=== PATIENT | male | born 1995 | race Caucasian/White ===

== ENCOUNTER 2017-03-27 20:19 | Inpatient (IN) | payer OTHER ==
[~2017-03-27] VITALS: Ht 167.6 cm; Wt 70.8 kg
[2017-03-27 20:33] VITALS: BP 135/74
[2017-03-27 23:38] LABS: BASOPHILS # (AUTO) 0.5 K/uL (0.00-0.22); BASOPHILS % (AUTO) 4.4 % (0.0-2.0); EOSINOPHILS # (AUTO) 0.3 K/uL (0-0.4); EOSINOPHILS % (AUTO) 2.7 % (0.0-4.0); HEMATOCRIT 43.4 % (36-52); HEMOGLOBIN 14.3 g/dL (12.0-18.0); LYMPHOCYTES # (AUTO) 3.9 K/uL (2.0-11.5); LYMPHOCYTES % (AUTO) 36.9 % (20.5-51.1); MEAN CORPUSCULAR HEMOGLOBIN 30 pg (27-31); MEAN CORPUSCULAR HGB CONC 33 g/dL (33-37); MEAN CORPUSCULAR VOLUME 91 fL (80-94); MONOCYTES # (AUTO) 0.8 K/uL (0.8-1.0); MONOCYTES % (AUTO) 7.9 % (1.7-9.3); NEUTROPHILS # (AUTO) 5.1 K/uL (1.8-7.7); NEUTROPHILS % (AUTO) 48.1 % (42.2-75.2); PLATELET COUNT (AUTO) 262 K/uL (140-450); RED BLOOD CELL COUNT(AUTO) 4.77 MIL/uL (4.20-6.10); RED CELL DISTRIBUTION WIDTH 11.9 % (11.6-13.7); WHITE BLOOD COUNT (AUTO) 10.6 K/uL (4.8-10.8)
[2017-03-27 23:42] LABS: APPEARANCE,URINE CLEAR (CLEAR); BILIRUBIN,URINE NEGATIVE (NEGATIVE); BLOOD, URINE NEGATIVE (NEGATIVE); COLOR,URINE YELLOW (YELLOW); LEUKOCYTE ESTERASE ,URINE NEGATIVE (NEGATIVE); NITRITE, URINE NEGATIVE (NEGATIVE); UGLUCOSE NEGATIVE (NEGATIVE)
--- NOTE | 2017-03-27 23:44 | NUR ---
C/O RT. ABDOMINAL PAIN X 1 WK. PAIN RADIATES TO GROIN AREA. NO MEDICAL HX. DENIES ANY FEVER, NAUSE AND VOMITTING, DENIES TAKING ANY MEDICATION, SKIN WARM TO TOUCH RESP. EVEN AND UNLABORED, PT AAO 11/10.
[2017-03-27 23:46] LABS: ANION GAP 13.5 (8-16); CARBON DIOXIDE 25.5 mmol/L (21-32); CREATININE 1.3 mg/dL (0.7-1.3); TOTAL BILIRUBIN 0.4 mg/dL (0.0-1.0)
[2017-03-28] MEDS ORDERED: ONDANSETRON 4 MG/2 ML VIAL IVP PRN (02:55)
[2017-03-28] MEDS ORDERED: ACETAMINOPHEN 325 MG TAB PO PRN (02:55)
[2017-03-28] MEDS ORDERED: amLODIPine 5 MG TAB PO SCH (02:55)
--- NOTE | 2017-03-28 03:35 | NUR ---
Patient will be admitted to care of DR. JONES. Admited to M/S. Will go to room 112A. Belongings list completed. Report to ROXIE PARRA.
--- NOTE | 2017-03-28 03:59 | NUR ---
RECEIVED FROM ER PER WHEELCHAIR AWAKE AND ALERT. NO SOB. ORIENTED X 4. ROM X 4. CLEAR SPEECH. DX. OF KIDNEY STONES . PT. ORIENTED TO CALL LIGHT USE FOR ANY HELP HE MAY NEED OR IF IN PAIN. SKIN INTACT. IVF SITE TO RAC#20. SKIN INTACT.
[2017-03-28] MEDS: NACL 0.9% 1,000 ML IV SCH ×3 (04:07→22:53)
[2017-03-28 04:12] VITALS: BP 129/65
--- NOTE | 2017-03-28 04:46 | NUR ---
PT. URINATED IN RESTROOM. NO COMPLAINTS DONE. DENIES PAIN AT THIS TIME.
[2017-03-28 07:10] LABS: BASOPHILS # (AUTO) 0.2 K/uL (0.00-0.22); EOSINOPHILS # (AUTO) 0.2 K/uL (0-0.4); EOSINOPHILS % (AUTO) 2.2 % (0.0-4.0); HEMATOCRIT 39.1 % (36-52); HEMOGLOBIN 13.5 g/dL (12.0-18.0); LYMPHOCYTES # (AUTO) 2.7 K/uL (2.0-11.5); LYMPHOCYTES % (AUTO) 28.1 % (20.5-51.1); MEAN CORPUSCULAR HEMOGLOBIN 31 pg (27-31); MEAN CORPUSCULAR HGB CONC 35 g/dL (33-37); MEAN CORPUSCULAR VOLUME 90 fL (80-94); MONOCYTES # (AUTO) 0.7 K/uL (0.8-1.0); MONOCYTES % (AUTO) 7.5 % (1.7-9.3); NEUTROPHILS # (AUTO) 5.8 K/uL (1.8-7.7); NEUTROPHILS % (AUTO) 60.2 % (42.2-75.2); PLATELET COUNT (AUTO) 233 K/uL (140-450); RED BLOOD CELL COUNT(AUTO) 4.35 MIL/uL (4.20-6.10); RED CELL DISTRIBUTION WIDTH 11.5 % (11.6-13.7); WHITE BLOOD COUNT (AUTO) 9.6 K/uL (4.8-10.8)
--- NOTE | 2017-03-28 07:20 | NUR ---
ENDORSED TO THE NEXT RN FOR CONTINUITY OF CARE. URINE STRAINED AND NOTED WITH SPECKS OF CRYSTALS IN IT. A/O X 4. ROM X 4. CLEAR SPEECH.
--- NOTE | 2017-03-28 07:21 | NUR ---
RECEIVED REPORT FROM CUT OFF SAWYER RN. PATIENT IN STABLE CONDITION. AOX4, RESPIRATORY EFFORT EVEN AND UNLABORED. NO SIGNS AND SYMPTOMS OF DISTRESS NOTED AT THIS TIME. PATIENT HAS IV SITE TO RIGHT AC 20G, INFUSING NORMAL SALINE AT 100 ML/HR. SITE IS CLEAN, DRY, PATENT AND INTACT. DISCUSSED PLAN OF CARE WITH PATIENT AND HE VERBALIZED UNDERSTANDING. BED IN LOWEST POSITION, SIDE RAILS UP X2, CALL LIGHT PLACED WITHIN REACH. WILL CONTINUE TO MONITOR.
[2017-03-28 08:00] VITALS: BP 127/71
[2017-03-28] MEDS: ENOXAPARIN 30 MG/0.3 ML SYR SUBQ SCH (08:28)
[2017-03-28] MEDS: TAMSULOSIN 0.4 MG CAP PO SCH (08:28)
[2017-03-28] MEDS: MORPHINE SULFATE 2 MG/ML SYR IVP PRN ×2 (08:28→12:49)
[2017-03-28 08:46] LABS: ALBUMIN 3.6 g/dL (3.4-5.0); ANION GAP 14.1 (8-16); CARBON DIOXIDE 22.9 mmol/L (21-32); CREATININE 1.2 mg/dL (0.7-1.3); TOTAL BILIRUBIN 0.4 mg/dL (0.0-1.0)
--- NOTE | 2017-03-28 09:07 | NUR ---
PATIENT HAS BEEN SCREENED AND CATEGORIZED LOW NUTRITION RISK. PATIENT WILL BE SEEN WITHIN 7 DAYS OF ADMISSION. 04/03/[address]
[2017-03-28] MEDS: MORPHINE SULFATE 4 MG/ML SYR IVP PRN ×2 (10:10→15:12)
--- NOTE | 2017-03-28 14:15 | NUR ---
CM NOTE INITIAL REVIEW FAXED TO [facility] [phone] ANGELA # [phone]
[2017-03-28 16:00] VITALS: BP 118/60
[2017-03-28] MEDS ORDERED: MORPHINE SULFATE 10 MG/ML SYR IVP PRN (17:25)
--- NOTE | 2017-03-28 19:33 | NUR ---
RECEIVED BEDSIDE REPORT FROM DAY SHIFT NURSE KRISTOPHER RN, PT STABLE, NO DISTRESS NOTED, IV TO R AC RUNNING NS @ 100ML/HR, INFUSING WELL, REPORTING HAVING NO PAIN AT THIS MOMENT, INITIAL ASSESSMENT DONE, ALL SAFETY PRECAUTION MET, PT RESTING, CALL LIGHT WITHIN REACH, WILL CONTINUE TO MONITOR.
--- NOTE | 2017-03-28 19:38 | NUR ---
ENDORSED PATIENT TO ROAD REPAIRER NURSE FOR CONTINUITY OF CARE. PATIENT IN STABLE CONDITION.
[2017-03-28] MEDS ORDERED: PANTOPRAZOLE 40 MG TABEC PO SCH (21:00)
[2017-03-29] VITALS: BP 108/58
--- NOTE | 2017-03-29 00:10 | NUR ---
CHECKED ON PT, PT SLEEPING, NO DISTRESS NOTED, REPORTED HAVING TOLERABLE PAIN AT THIS MOMENT, CALL LIGHT WITHIN REACH, WILL CONTINUE TO MONITOR.
[2017-03-29 07:02] LABS: ANION GAP 9.4 (8-16); CARBON DIOXIDE 25.1 mmol/L (21-32); POTASSIUM 4.5 mmol/L (3.5-5.1)
--- NOTE | 2017-03-29 07:30 | NUR ---
GAVE BEDSIDE REPORT TO DAY SHIFT NURSE DI PARRA, ENDORSED PLAN OF CARE PT STABLE, NO DISTRESS NOTED, CALL LIGHT WITHIN REACH.
--- NOTE | 2017-03-29 07:31 | NUR ---
RECEIVED REPORT FROM FISH FLIPPER NURSE. PATIENT LYING IN BED SLEEPING, AROUSABLE BY VOICE. NO DISTRESS NOTED. COMPLAINTS OF ABDOMINAL PAIN, WILL MEDICATE PER ORDERS. RESPIRATIONS EVEN, UNLABORED, ON ROOM AIR. AAOX4, CALM, COOPERATIVE, SKIN COLOR APPROPRIATE TO ETHNICITY, WARM TO TOUCH. SKIN IS INTACT. ABLE TO AMBULATE TO BATHROOM AND BACK WITH STEADY GAIT. URINAL AT BEDSIDE, NO KIDNEY STONES STRAINED THROUGHOUT FISH FLIPPER PER NIGHT NURSE REPORTS. LUNGS CTA ON ALL LOBES. ABDOMEN SOFT, NON-DISTENDED. REVIEWED PLAN OF CARE WITH PATIENT. PATIENT VERBALIZED UNDERSTANDING. SAFETY MEASURES IN PLACE, CALL LIGHT WITHIN REACH. WILL CONTINUE TO MONITOR.
[2017-03-29 08:00] VITALS: BP 111/67
[2017-03-29] MEDS ORDERED: PANTOPRAZOLE 40 MG TABEC PO SCH (09:00)
--- NOTE | 2017-03-29 09:00 | NUR ---
RECEIVED REPORT FROM DI PARRA FOR CONTINUITY OF CARE. PATIENT IS AWAKE, ALERT. RESPIRATION EVEN, UNLABOR. SKIN DRY AND WARM. IV PATENT AND INTACT. BED AT LOW POSITION WITH SIDE RAILS ARE UP. COMPLAINED OF PAIN 8/10 ON ABDOMEN. WILL MEDICATE PER ORDER. CALL LIGHT WITHIN REACH. WILL CONTINUE TO MONITOR
[2017-03-29] MEDS: TAMSULOSIN 0.4 MG CAP PO SCH (09:19)
[2017-03-29] MEDS: NACL 0.9% 1,000 ML IV SCH (09:19)
[2017-03-29] MEDS: MORPHINE SULFATE 4 MG/ML SYR IVP PRN ×2 (09:20→14:50)
[2017-03-29] MEDS: ENOXAPARIN 30 MG/0.3 ML SYR SUBQ SCH (09:28)
--- NOTE | 2017-03-29 10:30 | NUR ---
PATIENT IS AWAKE, ALERT. RESPIRATION EVEN, UNLABOR. DENIED PAIN AT THIS TIME. DR. JONES WAS AT BEDSIDE. CALL LIGHT WITHIN REACH
--- NOTE | 2017-03-29 11:57 | NUR ---
CM NOTE CONCURRENT REVIEW FAXED TO [facility] [phone] ANGELA # [phone]
--- NOTE | 2017-03-29 12:32 | NUR ---
LIZY NOTE RECEIVED ORDER TO SEE AN MEDICAL COLLECTIONS REPRESENTATIVE AND UROLOGIST AN OUTPATIENT. PER [facility] LIZY MILLER , SEND ORDER TO [facility]. SPOKE WITH LIZY ELIZABETH OF [facility] PH# [phone] AND SHE SAID TO FAX THEM THE ORDER AND [facility] WILL SCHEDULE PATIENT'S APPOINTMENTS. FAXED ORDER, H&P AND IMAGING RESULTS TO [facility] ATTN: CLARA [phone]. CHARGE NURSE SAMINA MICHAEL.
--- NOTE | 2017-03-29 14:30 | NUR ---
PATIENT IS AWAKE, ALERT. RESPIRATION EVEN, UNLABOR. COMPLAINED OF PAIN 5/10 ON THE BACK. WILL MEDICATE PER ORDER. FAMILY AT BEDSIDE. CALL LIGHT WITHIN REACH
--- NOTE | 2017-03-29 15:33 | NUR ---
CM NOTE RECEIVED HARD COPY OF AUTHORIZATION FOR ENDOCRINOLOGY AND UROLOGY APPOINTMENTS FROM [facility] PH# [phone]. PATIENT APPOINTMENT WITH DR GINI CALHOUN SET UP ON APRIL 28, 2017, 10:30AM, AUTH# [id number]. CALLED TO SET UP APPOINTMENT WITH [employer] DR. DESIREE CARRILLO PH# [phone], AND SPOKE WITH JOHN WHO SAID THAT THE OFFICE IS NOW CLOSED AND THE OFFICE TO SET UP APPOINTMENTS IS ONLY OPEN FROM 8AM-2PM THIS WEEK. PATIENT TO CALL TO SET UP AN APPOINTMENT WITH DR. Marii MORALES. HARD COPY OF AUTHORIZATIONS GIVEN. CHARGE NURSE SAMINA MICHAEL.
[2017-03-29 16:00] VITALS: BP 122/59
[2017-03-29] MEDS ORDERED: ACET-2869 PO (16:06)
[2017-03-29] MEDS ORDERED: TAMS0.4C96 PO (16:35)
[2017-03-29] MEDS ORDERED: SEN30 PO (16:35)
--- NOTE | 2017-03-29 17:44 | NUR ---
DISCHARGE INSTRUCTION AND PRESCRIPTION WERE GIVEN TO THE PATIENT. PATIENT VERBALIZED UNDERSTANDING. IV WAS REMOVED WITH CATHETER TIP INTACT, NO ACTIVE BLEEDING SEEN, PATIENT TOLERATED WELL. ID BAND WAS REMOVED. PATIENT IS STABLE AT THIS TIME. PATIENT WAS ESCORTED OUT BY STAFF, KENYATTA TEIXEIRA
--- NOTE | 2017-03-30 14:59 | NUR ---
CM NOTE DISCHARGE SUMMARY FAXED TO [facility] / FAX# [phone], ATTN: ANGELA #[phone]
== END 2017-03-29 17:50 | disposition home or self-care (01) | DRG 465 ==
LOC: MED 20:19 → MTU 03-28 02:59
PROVIDERS: ADMIT Hospitalist; ATTEND Hospitalist
DX: N20.0 Calculus of kidney (principal); D35.1 Benign neoplasm of parathyroid gland; E21.3 Hyperparathyroidism, unspecified; G89.29 Other chronic pain
CPT/HCPCS: 36415; 70492; 76536; 80048; 80053; 81003; 82040; 82306; 83970; 85025; 87081; 99285; J1650; J2270; J7030; Q9967

== ENCOUNTER 2018-07-30 08:38 | Inpatient (IN) | payer OTHER ==
[~2018-07-30] VITALS: Ht 167.6 cm; Wt 72.6 kg
[~2018-07-30 08:38] MED LIST: HYDR-5122 PO; SEN30 PO; TAMS0.4C96 PO
--- NOTE | 2018-07-30 08:43 | NUR ---
PT AMBULATED TO ER BED 03
--- NOTE | 2018-07-30 08:45 | NUR ---
BIB SELF C/O LEFT NECK PAIN , LEFT LOWER BACK PAIN X 1 MONTH. DENIES TRAUMA. MED HX: BN OF PARATHYROID GLAND. PATIENT STATES PAIN OF 9/10 AT THIS TIME. PATIENT POSITIONED FOR COMFORT; HOB ELEVATED; BEDRAILS UP X2; BED DOWN. ER MD MADE AWARE OF PT STATUS.
[2018-07-30 08:49] VITALS: BP 133/95
--- NOTE | 2018-07-30 09:43 | NUR ---
EKG AT BEDSIDE.
[2018-07-30 09:53] LABS: BASOPHILS % (AUTO) 0.5 % (0.0-2.0); EOSINOPHILS # (AUTO) 0.2 K/uL (0-0.4); EOSINOPHILS % (AUTO) 2.1 % (0.0-4.0); HEMATOCRIT 41.9 % (36-52); HEMOGLOBIN 14.2 g/dL (12.0-18.0); LYMPHOCYTES # (AUTO) 2.7 K/uL (2.0-11.5); LYMPHOCYTES % (AUTO) 33.3 % (20.5-51.1); MEAN CORPUSCULAR HEMOGLOBIN 31 pg (27-31); MEAN CORPUSCULAR HGB CONC 34 g/dL (33-37); MEAN CORPUSCULAR VOLUME 90.4 fL (80-94); MONOCYTES # (AUTO) 0.6 K/uL (0.8-1.0); NEUTROPHILS # (AUTO) 4.6 K/uL (1.8-7.7); NEUTROPHILS % (AUTO) 57.1 % (42.2-75.2); PLATELET COUNT (AUTO) 252 K/uL (140-450); RED BLOOD CELL COUNT(AUTO) 4.63 MIL/uL (4.20-6.10); RED CELL DISTRIBUTION WIDTH 12.9 % (11.6-13.7)
[2018-07-30 10:05] LABS: ANION GAP 9.7 (8-16); CARBON DIOXIDE 27.2 mmol/L (21-32); CREATININE 1.3 mg/dL (0.7-1.3); POTASSIUM 4.9 mmol/L (3.5-5.1); TOTAL BILIRUBIN 0.4 mg/dL (0.0-1.0)
[2018-07-30] MEDS ORDERED: NACL 0.9% 1,000 ML IV ONE ×2 (10:15)
[2018-07-30] MEDS ORDERED: POTASSIUM CHLORIDE 10 MEQ TABER PO PRN (11:20)
[2018-07-30] MEDS ORDERED: MAG SULF 2000 MG/WATER PREMIX 50 ML IV PRN (11:20)
[2018-07-30] MEDS ORDERED: ZOLPIDEM 5 MG TAB PO PRN (11:20)
[2018-07-30] MEDS ORDERED: BISACODYL 10 MG SUPP RC PRN (11:20)
[2018-07-30] MEDS ORDERED: LORazepam 2 MG/ML VIAL IVP PRN (11:20)
[2018-07-30] MEDS ORDERED: DOCUSATE SODIUM 250 MG GELCAP PO PRN (11:20)
[2018-07-30] MEDS ORDERED: IPRATROPIUM 0.02% 0.5 MG/2.5 ML NEBU INH PRN (11:20)
[2018-07-30] MEDS ORDERED: ONDANSETRON 4 MG/2 ML VIAL IVP PRN (11:20)
[2018-07-30] MEDS ORDERED: ACETAMINOPHEN 325 MG TAB PO PRN (11:20)
[2018-07-30] MEDS ORDERED: HYDROcodone/APAP 5/325 MG 1 TAB TAB PO PRN ×2 (11:20)
[2018-07-30] MEDS ORDERED: ALBUTEROL 0.083% 2.5 MG/3 ML NEBU INH PRN (11:20)
[2018-07-30] MEDS ORDERED: MORPHINE SULFATE 2 MG/ML SYR IVP PRN (11:20)
[2018-07-30] MEDS ORDERED: POTASSIUM CHLORIDE 40 MEQ, LIDOCAINE 1% 25 MG in NACL 0.9% 250 ML IV PRN (11:20)
[2018-07-30] MEDS ORDERED: cloNIDine 0.1 MG TAB PO PRN (11:20)
[2018-07-30] MEDS ORDERED: ACETAMINOPHEN 650 MG SUPP RC PRN (11:20)
[2018-07-30] MEDS ORDERED: ALUMINUM HYD/MAG/SIMETHICONE 30 ML UDC PO PRN (11:20)
[2018-07-30] MEDS ORDERED: diphenhydrAMINE 50 MG/ML VIAL IVP PRN (11:20)
[2018-07-30] MEDS ORDERED: MAGNESIUM OXIDE 400 MG TAB PO PRN (11:20)
[2018-07-30] MEDS ORDERED: guaiFENesin DM 200/20 MG-10 ML 10 ML UDC PO PRN (11:20)
[2018-07-30] MEDS ORDERED: SODIUM PHOSPHATE 118 ML ENEM RC PRN (11:20)
--- NOTE | 2018-07-30 11:30 | NUR ---
Patient will be admitted to care of DR CHATTERJEE. Admited to [facility]. Will go to room 125B. Belongings list completed. Report to JERSEY PARRA.
--- NOTE | 2018-07-30 11:30 | NUR ---
PATIENT ARRIVED ON THE UNIT WITH 2 ER NURSES. PATIENT IS ALERT AND ORIENTED. AMBULATED TO [facility] WITH STEADY GAIT. IV GAUGE LEFT AC 20 GAUGE, ON ROOM AIR. SKIN INTACT. PATIENT IS ON TELE MONITOR. ADMINISTERED NS AT 200/ML/HR. DR. SANDERS AND GILMER SAW PATIENT, WILL AWAIT ORDERS.
[2018-07-30] MEDS: NACL 0.9% 1,000 ML IV SCH ×2 (11:40→17:23)
[2018-07-30 12:22] VITALS: BP 135/79
[2018-07-30 13:10] LABS: ALBUMIN 3.5 g/dL (3.4-5.0); ANION GAP 9.4 (8-16); CARBON DIOXIDE 26.7 mmol/L (21-32); CREATININE 1.2 mg/dL (0.7-1.3); POTASSIUM 4.1 mmol/L (3.5-5.1); TOTAL BILIRUBIN 0.4 mg/dL (0.0-1.0)
[2018-07-30 16:00] VITALS: BP 121/77
--- NOTE | 2018-07-30 19:27 | NUR ---
GAVE REPORT TO COVER CUTTER NURSE. PATIENT IS STABLE.
--- NOTE | 2018-07-30 19:28 | NUR ---
RECEIVED PT FROM JERSEY RN PT IS AAOX4 AMBULATORY IV ON LEFT AC LINFUSING WELL NOT DISTRESS NOTED , ON TELEMETRY SB, RELATIVE AT BED SIDE INITIAL ASSESSMENT DONE
[2018-07-30 20:00] VITALS: BP 110/66
--- NOTE | 2018-07-30 21:00 | NUR ---
PT WATCHING TV NOT DISTRESS NOTED IV ON LEFT AC INFUSING WELL ON TELMETRY SB
[2018-07-30] MEDS: CINACALCET 30 MG TAB PO SCH (21:21)
[2018-07-31] VITALS: BP 98/48
--- NOTE | 2018-07-31 | NUR ---
PT SLEEPING WELL NOT SIGN OF DISTRESS NOTED ON TELEMETRY SB
[2018-07-31] MEDS: NACL 0.9% 1,000 ML IV SCH (01:41)
--- NOTE | 2018-07-31 02:00 | NUR ---
PT AMBULATES TO THE RESTROOM VO;IDING WELL ON TELMETRY SB NOT DISTRESS NOTED
[2018-07-31 04:00] VITALS: BP 126/55
--- NOTE | 2018-07-31 04:21 | NUR ---
PT ERESTING ON BED NOT SIGNS OF DISTRESS NOTED GETTING SLEEP ON TELEMETRY SB
[2018-07-31 06:48] LABS: ANION GAP 9.4 (8-16); CARBON DIOXIDE 26.2 mmol/L (21-32); POTASSIUM 4.6 mmol/L (3.5-5.1)
--- NOTE | 2018-07-31 06:53 | NUR ---
PT RESTING ON BED ON SB ON TELMETRY NOT DISTRESS NOTED PT WILL BE ENDORSED TO DAY SHIFT NURSE FOR CONTINUE CARE
--- NOTE | 2018-07-31 07:25 | NUR ---
RECEIVED BEDSIDE REPORT FROM FIDEL GOLDSMITH. PATIENT ON TELE MONITOR AND STANDARD PRECAUTIONS IN PLACE. PATIENT AAOX4 AND ON ROOM AIR, NO DISTRESS NOTED. SKIN INTACT. PATIENT AMBULATORY AND CONTINENT. IV ON L AC 20 G INFUSING NS AT 150, IV ASYMPTOMATIC PATENT AND INTACT. BED IN LOW POSITION, CALL LIGHT WITHIN REACH, SIDE RAILS X2 UP
[2018-07-31 08:00] VITALS: BP 116/62
--- NOTE | 2018-07-31 08:26 | NUR ---
PATIENT HAS BEEN SCREENED AND CATEGORIZED MODERATE NUTRITION RISK. PATIENT WILL BE SEEN WITHIN 3-5 DAYS OF ADMISSION. 08/01/18KARIS [address]
--- NOTE | 2018-07-31 09:15 | NUR ---
ADMINISTERED SCHEDULED MEDS. PATIENT TOLERATED WELL
[2018-07-31] MEDS: CINACALCET 30 MG TAB PO SCH (09:16)
--- NOTE | 2018-07-31 11:04 | NUR ---
CALLED OFFICE OF DR JEAN [phone] SPOKE TO MARTHA, FOLLOW-UP APPOINTMENT MADE ON 08/09/18 @ 10AM , [id number], [place] [address]. I MADE COPY OF APPOINTMENT SCHEDULE AND GIVEN TO PATIENT. PRIMARY NURSE MICHAEL NOTIFIED.
--- NOTE | 2018-07-31 11:45 | NUR ---
DISCHARGE INSTRUCTIONS PROVIDED TO PATIENT. FLU VACCINE APR 2018. PNA VACCINE NOT CANDIDATE. SKIN INTACT. ALL BELONGINGS SENT HOME WITH PATIENT INCLUDING CLOTHES, CELLPHONE, CONCRETE ANALYST, SHOES. COPY OF EXCUSE NOTE GIVEN TO PATIENT. FOLLOW UP APPOINTMENT ON 08/09/18 AT 10 AM, COPY PROVIDED TO PATIENT. PATIENT VERBALIZED UNDERSTANDING. ADVISED TO RETURN TO NEAREST ER OR CALL 911 IF HE EXPERIENCES SOB, FEVER, PAIN, ETC. REMOVED WRIST BAND AND IV TIP INTACT.
== END 2018-07-31 11:45 | disposition home or self-care (01) | DRG 425 ==
LOC: MED 08:38 → MMU 10:48
PROVIDERS: ADMIT Internal Medicine Pulmonary Disease; ATTEND Internal Medicine Pulmonary Disease
DX: E83.52 Hypercalcemia (principal); D35.1 Benign neoplasm of parathyroid gland; Z87.442 Personal history of urinary calculi; Z79.899 Other long term (current) drug therapy
CPT/HCPCS: 36415; 76770; 80048; 80053; 82306; 85025; 87081; 93005; 99285; J7030; Q0092